=== PATIENT | male | born 1980 | race Caucasian/White ===

== ENCOUNTER 2022-01-05 15:36 | Emergency (ER) | payer OTHER ==
[~2022-01-05] VITALS: Ht 185.4 cm; Wt 84.7 kg
[2022-01-05] VITALS (24 sets, daily range): BP systolic 112–146; BP diastolic 77–107
[2022-01-05 16:03] LABS: HEMATOCRIT 49.5 % (39.0-50.0); HEMOGLOBIN 17.7 g/dl (14.0-18.0); IMMATURE GRANULOCYTES 0.1 % (0.0-5.0); MEAN CELL VOLUME 93.9 fL CALC (80.0-100.0); MEAN CORPUSCULAR HGB 33.6 pG CALC (26.0-32.0); MEAN CORPUSCULAR HGB CONC 35.8 g/dL CAL (32.0-36.0); NEUT# 7.05 thou/uL (1.82-7.42); RED BLOOD COUNT 5.27 mill/uL (4.70-6.10); RED CELL DISTRI WIDTH 11.3 % (11.5-15.5)
[2022-01-05 16:21] LABS: ALBUMIN 5.4 g/dL (3.2-5.0); ALKALINE PHOSPHATASE 110 u/l (38-126); AMYLASE 112 u/l (30-110); ANION GAP 19 (6-22 (CALC)); BILIRUBIN, TOTAL 1.4 mg/dL (0.0-1.4); BUN 11 mg/dL (9-20); BUN/CREATININE RATIO 12 (12-20 (CALC)); CARBON DIOXIDE 21 mmol/l (22-30); CHLORIDE 108 mmol/l (95-108); CREATININE 0.9 mg/dL (0.7-1.3); ETHYL ALCOHOL 0 mg/dl (0-30); GFR > 60 ML/MIN (>=60 (CALC)); GFR FOR AFR.AMER. > 60 ML/MIN (>=60 (CALC)); LIPASE 176 u/l (23-300); POTASSIUM 4.9 mmol/l (3.5-5.1); SGOT/AST 48 u/l (17-59); SODIUM 142 mmol/l (137-146); TOTAL PROTEIN 9.4 g/dL (6.3-8.2)
[2022-01-05 16:25] LABS: ACT PARTIAL THROMBO TIME 18.4 SECONDS (20.0-32.5); PROTHROMBIN TIME 10.9 SECONDS (9.0-12.5)
[2022-01-05 17:18] LABS: URINE BILIRUBIN - DIPSTICK NEGATIVE (NEGATIVE); URINE BLOOD DIPSTICK NEGATIVE (NEGATIVE); URINE COLOR YELLOW; URINE GLUCOSE - DIPSTICK NEGATIVE (NEGATIVE); URINE KETONE TRACE mg/dL (NEGATIVE); URINE LEUK ESTERASE NEGATIVE (NEGATIVE); URINE PH 7.5 (4.5-8.0); URINE PROTEIN - DIPSTICK TRACE mg/dL (NEG-TRACE)
[2022-01-05 17:21] LABS: URINE NITRITE - DIPSTICK NEGATIVE (Negative)
[2022-01-06] VITALS (7 sets, daily range): BP systolic 103–116; BP diastolic 66–79
== END 2022-01-06 02:51 | disposition designated cancer center or children's hospital (05) | DRG 918 ==
LOC: ED 15:36
DX: T55.0X2A Toxic effect of soaps, intentional self-harm, initial encounter (principal); T49.8X2A Poisoning by other topical agents, intentional self-harm, initial encounter; R07.9 Chest pain, unspecified; Y92.149 Unspecified place in prison as the place of occurrence of the external cause; Z91.51 Personal history of suicidal behavior; Z20.822 Contact with and (suspected) exposure to COVID-19
CPT/HCPCS: Q9967